=== PATIENT | female | born 1990 ===

== ENCOUNTER 2017-10-09 15:57 | Inpatient (IN) | payer OTHER ==
--- NOTE | 2017-10-09 17:26 | C.PDOC ---
History Of Present Illness 27 year old female, whose PMHx includes Anxiety, Depression and Migraines, presents to the ED requesting detox after using heroin and Xanax last night. Patient state she usually uses heroin intranasally or smokes it. Patient also reports smoking cigarettes, stating she smokes around 3-4 cigarettes daily. Patient reports intermittent chills, headache and diarrhea. She denies fever, vomiting, and suicidal/homicidal ideation at this time. Time Seen by Provider: 10/09/17 16:35 Chief Complaint (Nursing): Substance Abuse History Per: Patient History/Exam Limitations: no limitations Onset/Duration Of Symptoms: Hrs Current Symptoms Are (Timing): Still Present Suicide/Self Injury Attempted (Context): None Modifying Factor(s): Narcotics (heroin), Other (xanax ) Associated Symptoms: denies: Suicidal Thoughts, Suicidal Plan Involuntary Hold By: None Recent travel outside of the [place]: No Additional History Per: Patient Past Medical History Reviewed: Historical Data, Nursing Documentation, Vital Signs Vital Signs: Last Vital Signs Temp 98.1 F 10/09/17 16:24 Pulse 102 H 10/09/17 16:24 Resp 18 10/09/17 16:24 BP 146/102 H 10/09/17 16:24 Pulse Ox 98 10/09/17 17:34 - Medical History PMH: Anxiety, Depression, Gastritis, Migraine Denies: Diabetes, Hepatitis, HIV, HTN, Seizures, Sexually Transmitted Disease Surgical History: No Surg Hx - [facility] Procedures DETOXIFICATION SERVICES FOR SUBSTANCE ABUSE TREATMENT (12/18/16) GROUP DIRECTOR OF NURSES REGISTRY FOR SUBSTANCE ABUSE TREATMENT, PSYCHOEDUCATION (12/18/16) MEDICATION MANAGEMENT (12/18/16) Family History: States: Unknown Family Hx - Social History Hx Tobacco Use: Yes Hx Alcohol Use: Yes Hx Substance Use: Yes - Immunization History Hx Tetanus Toxoid Vaccination: No Hx Influenza Vaccination: No Hx Pneumococcal Vaccination: No Review Of Systems Constitutional: Positive for: Chills Gastrointestinal: Positive for: Diarrhea. Negative for: Vomiting Neurological: Positive for: Headache Psych: Negative for: Suicidal ideation, Other (detox from heroin and xanax ) Physical Exam - Physical Exam Appears: Non-toxic, No Acute Distress Skin: Normal Color, Warm, Dry Head: Atraumatic, Normacephalic Eye(s): bilateral: Normal Inspection Oral Mucosa: Moist Neck: Supple Chest: Symmetrical, No Deformity, No Tenderness Cardiovascular: Rhythm Regular, No Murmur Respiratory: Normal Breath Sounds, No Rales, No Rhonchi, No Wheezing Extremity: Normal ROM, Capillary Refill (less than 2 seconds ) Neurological/Psych: Oriented x3, Normal Speech, Normal Cognition Gait: Steady ED Course And Treatment - Laboratory Results Result Diagrams: 10/09/17 17:25 10/09/17 17:25 O2 Sat by Pulse Oximetry: 98 (on RA) Pulse Ox Interpretation: Normal Medical Decision Making Medical Decision Making: Impression: 27 year old female requesting detox Plan: * bloodwork * urinalysis * reassess and disposition Progress: Labs ordered and reviewed. In my clinical judgment patient is medically cleared and stable for admission for detox Disposition - Disposition Disposition: HOSPITALIZED Disposition Time: 18:00 Condition: STABLE - POA Present On Arrival: None - Clinical Impression Clinical Impression: Heroin abuse - PA / ELECT EQUIP MAINT ENG / Resident Statement MD/DO has reviewed & agrees with the documentation as recorded. - Scribe Statement The provider has reviewed the documentation as recorded by the Scribe (Isatu Gutierrez) All medical record entries made by the Scribe were at my direction and personally dictated by me. I have reviewed the chart and agree that the record accurately reflects my personal performance of the history, physical exam, medical decision making, and the department course for this patient. I have also personally directed, reviewed, and agree with the discharge instructions and disposition. Decision To Admit - Pt Status Changed To: Hospital Disposition Of: Inpatient - Admit Certification Admit to Inpatient:: After my assessment, the patient will require hospitalization for at least two midnights. This is because of the severity of symptoms shown, intensity of services needed, and/or the medical risk in this patient being treated as an outpatient. - InPatient: Physician Admission Certification: I certify that this patient requires 2 or more midnights of care for the following reason:: Patient accepted by dr zimmerman for detox of polysubstance and opiates - . Bed Request Type: Detox Admitting Physician: Margret Zimmerman Patient Diagnosis: Heroin abuse
[2017-10-09 17:30] LABS: BASO % 0.6 % (0.0-2.0); EOS # 0.1 K/uL (0.0-0.7); EOS % 1.6 % (0.0-4.0); HEMATOCRIT 37.5 % (34.0-47.0); LYMPH # 1.9 K/uL (1.0-4.3); LYMPH % 31.9 % (20.0-40.0); MEAN CELL VOLUME 80.2 fL (81.0-99.0); MEAN CORPUSCULAR HEMOGLOBIN 25.9 pg (27.0-31.0); MEAN CORPUSCULAR HGB CONC 32.2 g/dL (33.0-37.0); MEAN PLATELET VOLUME 6.9 fL (7.2-11.7); MONO # 0.3 K/uL (0.0-0.8); MONO % 5.2 % (0.0-10.0); RED CELL DISTRIBUTION WIDTH 14.4 % (11.5-14.5); WHITE BLOOD COUNT 6.1 K/uL (4.8-10.8)
[2017-10-09 17:40] LABS: RBC URINE < 1 /hpf (0-3); URINE BACTERIA OCC (<OCC); URINE BILIRUBIN NEGATIVE (NEGATIVE); URINE BLOOD NEGATIVE (NEGATIVE); URINE COLOR Yellow (YELLOW); URINE GLUCOSE (UA) NORMAL (Normal); URINE KETONE NEGATIVE (NEGATIVE); URINE LEUKOCYTE ESTERASE 1+ Leu/uL (Negative); URINE PROTEIN NEGATIVE (NEGATIVE); URINE UROBILINOGEN NORMAL mg/dL (0.2-1.0); WBC URINE 8 /hpf (0-5)
[2017-10-09 17:43] LABS: ALB/GLOB RATIO 1.7 (1.0-2.1); ALCOHOL SERUM < 10 mg/dl (0-10); ALKALINE PHOSPHATASE 71 U/L (38-126); ALT/SGPT 42 U/L (9-52); AST/SGOT 20 U/L (14-36); BILIRUBIN,TOTAL 0.7 mg/dL (0.2-1.3); BLOOD UREA NITROGEN 9 mg/dL (7-17); CALCIUM 8.8 mg/dl (8.6-10.4); CARBON DIOXIDE 26 mmol/L (22-30); CHLORIDE 101 mmol/L (98-107); GFR AFRICAN-AMERICAN > 60; GLUCOSE,RANDOM 86 mg/dL (65-105); POTASSIUM 3.9 mmol/L (3.6-5.2); SODIUM 137 mmol/L (132-148); TOTAL PROTEIN 7.9 g/dL (6.3-8.3)
--- NOTE | 2017-10-09 19:47 | PCM.BM ---
<Tyra Sams - Last Filed: 10/09/17 19:46> Treatment Plan Problems - Problems identified on initial assessmt Potential for opiate withdrawal Date Initiated: 10/09/17 Time Initiated: 19:46 Assessment reference: NA Status: Active Priority: 1 Treatment assets and liabiliti Patient Assests: cooperative, ADL independent, negotiates basic needs, cognitively intact Patient Liabilities: substance abuse - Milieu Protocol Maintain good personal hygiene: daily Encourage regular showers, daily Remind patient to perform daily oral care, daily Assist patient to perform ADL's Maintain personal safety: every shift Educate patient to report safety concerns to staff, every shift Monitor environment for contraband/sharps Medication safety: Monitor for expected outcome, potential side effects: every shift, Assess barriers to learning: every shift, Assess readiness for medication education: every shift <Margret Smith - Last Filed: 10/12/17 00:24> - Diagnosis (1) Opioid use disorder, severe, dependence Status: Acute Interventions: 10/12/17 00:25 * Assess 7x/week regarding severity of withdrawal * Educate regarding risks, benefits, side effects and alternatives of medications * Use Motivational Interviewing for abstinence * Use CBT for relapse prevention * Medication management for withdrawal symptoms * Encourage medication assisted treatment * <Rowena Wright - Last Filed: 10/15/17 08:43> Family Contact Family involvement: Family/SO is involved Family contact: Patient agrees to contact - Goals for Treatment Patient goals for treatment: Complete detox and apply for terminal operations supervisor rehab. Discharge/Continuing Care - Education Needs Education Needs: Patient Medication, Patient Diagnosis/Disease Process, Patient Coping Skills, Patient Anger Management skills, Patient Placement options, Patient Community resources - Discharge Discharge Criteria: No longer exhibiting s/s of withdrawal, Reduction of target symptoms Discharge to:: Substance Abuse Rehab - Treatment Team Participation Patient/Family/SO Statement: 10/15/17 08:43 "I need to go to rehab". Discussed with Family/SO: No Was Patient/Family/SO present at Treatment Team Meeting: Yes
[2017-10-09] MEDS ORDERED: Aluminum Hydroxide/Magnesium Hydroxide Susp (30 mL) PO PRN (22:12)
[2017-10-10] MEDS ORDERED: Buprenorphine Hydrochloride 2 mg SL ONE ×2 (09:45→10:52)
--- NOTE | 2017-10-10 13:29 | PCM.PSYCH ---
Initial Psychiatric Evaluation - Initial Psychiatric Evaluation Type of Admission: Voluntary Legal Status: Capacity Chief Complaint (in patient's own words): "Heroin" History of Present Illness and Precipitating Events: The patient is seen, chart reviewed and case discussed. This is a 27-year-old female, single with one son 10 m/o who is with the patient's boyfriend. The patient lives with her boyfriend and their child. 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 The patient is using a bundle of heroin intranasally for a year and half. She denies painkillers but she takes 4 mg Xanax for the last 5 years. She denies alcohol and all other drugs except for marijuana 3 times a week since age 17, and 3 or 4 cigarettes daily. No hx of seizures This is her second detox and she is has been to rehabilitation twice. Denies psych symptoms. Past psych history: Denies Family psych history: Denies Medical history: Migraines Current Medications: Active Medications Generic Name Dose Route Start Last Admin Trade Name Freq PRN Reason Stop Dose Admin Al Hydrox/Mg Hydrox/Simethicone 30 ml 10/09/17 22:12 Maalox 30 Ml PO TID PRN Indigestion / Heartburn Clonidine HCl 0.1 mg 10/09/17 22:12 10/10/17 13:00 Catapres PO 0.1 mg Q8 PRN Administration COWS Score More or Equal to 5 Escitalopram Oxalate 10 mg 10/10/17 10:00 10/10/17 10:01 Lexapro PO 10 mg DAILY LIDYA Administration Gabapentin 300 mg 10/10/17 10:00 10/10/17 10:01 Neurontin PO 300 mg BID LIDYA Administration Hydroxyzine HCl 25 mg 10/09/17 20:59 10/09/17 21:24 Atarax PO 25 mg Q6 PRN Administration Anxiety Loperamide HCl 2 mg 10/09/17 22:12 Imodium PO Q8 PRN Diarrhea Ondansetron HCl 4 mg 10/09/17 22:12 Zofran Tab PO Q8 PRN Nausea/Vomiting Quetiapine Fumarate 50 mg 10/10/17 22:00 Seroquel PO HS LIDYA Trazodone HCl 50 mg 10/09/17 20:58 10/09/17 21:24 Desyrel PO 50 mg HS PRN Administration Insomnia Past Psychiatric History - Past Psychiatric History Previous Treatment History: None Pertinent Medical Hx (Current Medical&Sleep Prob, Allergies): Allergies Allergy/AdvReac Type Severity Reaction Status Date / Time No Known Allergies Allergy Verified 10/09/17 16:28 Escitalopram [Lexapro] 20 mg PO DAILY 10/09/17 Gabapentin [Neurontin] 600 mg PO TID 10/09/17 QUEtiapine [Seroquel] 100 mg PO HS PRN 10/09/17 Review of Systems - Psychiatric Psychiatric: Abnormal Sleep Pattern, Anxiety. absent: Depression, Hallucinations, Homicidal Ideation, Suicidal Ideation Mental Status Examination - Personal Presentation Personal Presentation: Looks stated age - Affect Affect: Broad - Motor Activity Motor Activity: Calm - Reliability in Providing Information Reliability in Providing Information: Good - Speech Speech: Organized - Mood Mood: Anxious - Formal Thought Process Formal Thought Process: No Impairment - Cognitive Functions Orientation: Person, Place, Situation, Time Sensorium: Alert Attention/Concentration: Attentive Estimate of Intelligence: Average Judgement: Intact, as evidence by: Insight regarding need for hospitalization Memory: Recent intact, as evidence by: Ability to recall events of the day, Remote intact, as evidenced by: Abilit to recall sig. life events - Risk Risk: Withdrawal, Diminished functioning - Strength & Assets Inventory Strength & Assets Inventory: Cooperative - Limitations Limitations: Other DSM 5 DX - DSM 5 DSM 5 Diagnosis: Opioid withdrawal Opioid use disorder, severe Sedative, hypnotic or anxiolytic use disorder, severe Anxiety disorder, unspecified - Recommended/Plan of Treatment Treatment Recommendations and Plan of Treatment: Subutex detox Librium detox for benzos As needed medications Gabapentin for augmentation and anxiety Lexapro for dep/anxiety Attend groups and activities Supportive therapy and psychoeducation [place] for abstinence CBT for relapse prevention Encourage MAT Refer to rehab or IOP Attend self-help groups as well 34 min Projected ELOS: 5 days Prognosis: good with treatment - Smoking Cessation Smoking Cessation Initiated: Yes
[2017-10-10] MEDS: Vitamins A & D Oint UD Foilpak TOP PRN (18:15)
[2017-10-11] MEDS: Buprenorphine Hydrochloride 2 mg SL SCH (10:51)
[2017-10-11] MEDS: Vitamins A & D Oint UD Foilpak TOP PRN (11:38)
--- NOTE | 2017-10-11 14:02 | PCM.PYCHPN ---
Psychiatric Progress Note - Psychiatric Progress Note Patient seen today, length of contact: 17 min Patient Chief Complaint: "Heroin" Problems Identified/Issues Discussed: The pt is seen, chart reviewed, case discussed with staff. The pt is compliant with medications and reports no side-effects. Symptoms are improving but needs more time to stabilize. After care discussed, support and psychoeducation given. Wants to go to a rehab UTI - abx started Medication Change: Yes (detox changes daily) Medical Record Reviewed: Yes Mental Status Examination - Cognitive Function Orientation: Person, Place, Situation, Time Memory: Intact Attention: WNL Concentration: WNL Association: WNL Fund of Knowledge: WNL - Mood Mood: Anxious - Affect Affect: Broad - Speech Speech: Appropriate - Formal Thought Process Formal Thought Process: No Impairment - Suicidal Ideation Suicidal Ideation: No - Homicidal Ideation Homicidal Ideation: No Goal/Treatment Plan - Goal/Treatment Plan Need for Continued Stay: Discharge may exacerbated symptoms, Severe functional impairment Progress Toward Problem(s) and Goals/Treatment Plan: Subutex detox Librium detox for benzos As needed medications Gabapentin for augmentation and anxiety Lexapro for dep/anxiety Attend groups and activities Supportive therapy and psychoeducation [place] for abstinence CBT for relapse prevention Encourage MAT Refer to rehab or IOP Attend self-help groups as well
[2017-10-12] MEDS: Buprenorphine Hydrochloride 2 mg SL SCH (10:31)
--- NOTE | 2017-10-12 13:29 | PCM.PYCHPN ---
Psychiatric Progress Note - Psychiatric Progress Note Patient seen today, length of contact: 15 min Patient Chief Complaint: "I am doing well" Problems Identified/Issues Discussed: The pt is seen, chart reviewed, case discussed with staff. Support given, CBT and [place] used briefly No new symptoms reported, improving slowly and needs more time No SEs from medications, risks discussed. After care discussed - no change, she is pleased. UTI tx is going OK Medication Change: Yes (detox changes daily) Medical Record Reviewed: Yes Mental Status Examination - Cognitive Function Orientation: Person, Place, Situation, Time Memory: Intact Attention: WNL Concentration: WNL Association: WNL Fund of Knowledge: WNL - Mood Mood: Anxious - Affect Affect: Broad - Speech Speech: Appropriate - Formal Thought Process Formal Thought Process: No Impairment - Suicidal Ideation Suicidal Ideation: No - Homicidal Ideation Homicidal Ideation: No Goal/Treatment Plan - Goal/Treatment Plan Need for Continued Stay: Discharge may exacerbated symptoms, Severe functional impairment Progress Toward Problem(s) and Goals/Treatment Plan: Subutex detox Librium detox for benzos As needed medications Gabapentin for augmentation and anxiety Lexapro for dep/anxiety Attend groups and activities Supportive therapy and psychoeducation [place] for abstinence CBT for relapse prevention Encourage MAT Refer to rehab or IOP Attend self-help groups as well
[2017-10-12] MEDS: Saccharomyces Boulardi 250 mg Cap PO SCH (14:47)
[2017-10-12] MEDS: Amoxicillin-Clav 875-125 mg Tab PO SCH (19:43)
[2017-10-13] MEDS: Amoxicillin-Clav 875-125 mg Tab PO SCH ×2 (06:33→18:56)
[2017-10-13] MEDS: Buprenorphine Hydrochloride 2 mg SL SCH (10:24)
[2017-10-13] MEDS: Saccharomyces Boulardi 250 mg Cap PO SCH (12:50)
--- NOTE | 2017-10-13 17:09 | PCM.PYCHPN ---
Psychiatric Progress Note - Psychiatric Progress Note Patient seen today, length of contact: 17 min Patient Chief Complaint: "I'm feeling better" Problems Identified/Issues Discussed: The pt is seen, chart reviewed, case discussed with staff. Pt stated that she had anxiety attack yesterday after she has had an argument with the family member on the phone. Support given, CBT and [place] used briefly No new symptoms reported, improving slowly and needs more time No SEs from medications, risks discussed. After care discussed Medication Change: Yes (detox changes daily) Medical Record Reviewed: Yes Mental Status Examination - Cognitive Function Orientation: Person, Place, Situation, Time Memory: Intact Attention: WNL Concentration: WNL Association: WN Fund of Knowledge: WNL - Mood Mood: Anxious - Affect Affect: Broad - Speech Speech: Appropriate - Formal Thought Process Formal Thought Process: No Impairment Psychotic Thoughts and Behaviors: DENIED - Suicidal Ideation Suicidal Ideation: No - Homicidal Ideation Homicidal Ideation: No Goal/Treatment Plan - Goal/Treatment Plan Need for Continued Stay: Discharge may exacerbated symptoms, Severe functional impairment Progress Toward Problem(s) and Goals/Treatment Plan: Subutex detox Librium detox for benzos As needed medications Gabapentin for augmentation and anxiety Lexapro for dep/anxiety Attend groups and activities Supportive therapy and psychoeducation [place] for abstinence CBT for relapse prevention Encourage MAT Refer to rehab or IOP Estimated Date of D/C: 10/15/17 - Smoking Cessation Smoking Cessation Initiated: Yes
[2017-10-14] MEDS: Amoxicillin-Clav 875-125 mg Tab PO SCH ×2 (07:44→18:18)
[2017-10-14] MEDS: Buprenorphine Hydrochloride 2 mg SL SCH (09:38)
[2017-10-14] MEDS: Saccharomyces Boulardi 250 mg Cap PO SCH (11:51)
--- NOTE | 2017-10-14 16:21 | PCM.PYCHPN ---
Psychiatric Progress Note - Psychiatric Progress Note Patient seen today, length of contact: 15 min Patient Chief Complaint: "Medications are helping me" Problems Identified/Issues Discussed: The pt is seen, chart reviewed, case discussed with staff. Pt stated that she is feeling anxious as she is going to complete her detox. No new symptoms reported, improving slowly and needs more time. No SEs from medications, risks discussed. Support given, CBT and [place] used briefly After care discussed Medication Change: Yes (detox changes daily) Medical Record Reviewed: Yes Mental Status Examination - Cognitive Function Orientation: Person, Place, Situation, Time Memory: Intact Attention: WNL Concentration: WNL Association: [facility] Fund of Knowledge: [facility] Decription of patient's judgement and insights: good/good - Mood Mood: Anxious - Affect Affect: Broad - Speech Speech: Appropriate - Formal Thought Process Formal Thought Process: No Impairment Psychotic Thoughts and Behaviors: denied - Suicidal Ideation Suicidal Ideation: No - Homicidal Ideation Homicidal Ideation: No Goal/Treatment Plan - Goal/Treatment Plan Need for Continued Stay: Discharge may exacerbated symptoms, Severe functional impairment Progress Toward Problem(s) and Goals/Treatment Plan: Subutex detox Librium detox for benzos As needed medications Gabapentin for augmentation and anxiety Lexapro for dep/anxiety Attend groups and activities Supportive therapy and psychoeducation [place] for abstinence CBT for relapse prevention Encourage MAT Refer to rehab or IOP Estimated Date of D/C: 10/15/17 - Smoking Cessation Smoking Cessation Initiated: Yes
[2017-10-15] MEDS: Amoxicillin-Clav 875-125 mg Tab PO SCH (08:01)
--- NOTE | 2017-10-15 08:43 | PCM.PYCHDC ---
Mental Status Examination - Mental Status Examination Orientation: Person, Place, Situation, Time Memory: Intact Mood: Neutral Affect: Constricted Speech: Appropriate Attention: WNL Concentration: WNL Association: WNL Fund of Knowledge: WNL Formal Thought Process: No Impairment Suicidal Ideation: No Current Homicidal Ideation?: No Discharge Summary - Discharge Note Reason for Hospitalization: Opioid detox Psychiatric History (includes Medical, Family, Personal Hx): Anxiety, depression Consultations:: List each consultation separately and include: 1. Reason for request. 2. Findings. 3. Follow-up Summary of Hospital Course include:: 1. Description of specific treatment plan utilized for patients during their course of treatmen. 2. Summarize the time- course for resolution of acute symptoms and/or regressed behaviors. 3. Describe issues identified and worked on during hospitalization. 4. Describe medication utilized. 5. Describe medical problems identified and treated. 6. Reassessment of suicide risk Summary of Hospital Course: The patient is seen, chart reviewed and case discussed. This is a 27-year-old female, single with one son 10 m/o who is with the patient's boyfriend. The patient lives with her boyfriend and their child. 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 The patient is using a bundle of heroin intranasally for a year and half. She denies painkillers but she takes 4 mg Xanax for the last 5 years. She denies alcohol and all other drugs except for marijuana 3 times a week since age 17, and 3 or 4 cigarettes daily. No hx of seizures This is her second detox and she is has been to rehabilitation twice. Denies psych symptoms. Past psych history: Denies Family psych history: Denies Medical history: Migraines Hospital course: The pt was admitted and started on treatment with psychotherapy, support, psychoeducation and medications. [place] and CBT used. The pt attended groups and activities, as well as milieu therapy. All the risks and benefits of medications are discussed and the patient understood and agreed. The pt improved with the treatments provided. She stayed longer than usual due to her acceptance to [facility] for Sunday. She had high relapse risk if she were let go. Also, she got her friend put in money to her card so that she could get the pills from pharmacy on the way to [facility]. After care discussed with the patient and as stated she went to [facility] She was in good spirits and motivated. Her extermination inspector plans are iffy, though as she has a DYFS case. - Final Diagnosis (DSM 5) Condition upon Discharge: IMPROVED DSM 5: Opioid withdrawal Opioid use disorder, severe Sedative, hypnotic or anxiolytic use disorder, severe Anxiety disorder, unspecified Disposition: REHAB FACILITY/REHAB UNIT Follow-up Treatment Plan: Continue below medications after discharge. Of note, she did not get 300 and 400 mg gabapentin. 300 mg as well as seroquel 50 were entered on an earlier date and are cancelled when the doses changed. Follow after care plan as discussed. Use relapse prevention skills Return to ER or call 911 if suicidal, homicidal or symptoms relapse. Stay away from stress, alcohol and drugs. See primary doctor regularly and get labs. Prescriptions/Medication Reconciliation: Amoxicillin/Clavulanate [Augmentin 875 MG-125 MG Tab] 1 tab PO Q12H #4 tab Escitalopram [Lexapro] 10 mg PO DAILY #30 tab Gabapentin [Neurontin] 300 mg PO BID #60 cap Gabapentin [Neurontin] 400 mg PO TID #90 cap QUEtiapine [Seroquel] 100 mg PO HS #30 tab QUEtiapine [SEROquel] 50 mg PO HS #30 tab traZODone [Desyrel] 50 mg PO HS PRN #30 tab PRN Reason: Insomnia - Smoking Cessation Smoking Cessation Medication prescribed: No - Antipsychotic Medications Pt discharged on 2 or more routine antipsychotic medications: No
[2017-10-15 08:54] VITALS: BP 123/83; PULSE 68; RESP 19; TEMP 97.4; O2SAT 98
[2017-10-15] MEDS: Buprenorphine Hydrochloride 2 mg SL SCH (09:22)
== END 2017-10-15 11:00 | DRG 744 ==
LOC: C.ER 15:57 → C.7D 18:00
PROVIDERS: ADMIT Psychiatry & Neurology Psychiatry; ATTEND Psychiatry & Neurology Psychiatry
PROC: HZ2ZZZZ Detoxification Services for Substance Abuse Treatment (ICD-10-PCS; principal; 2017-10-09)
PROC: HZ59ZZZ Individual Psychotherapy for Substance Abuse Treatment, Supportive (ICD-10-PCS; 2017-10-09)
PROC: HZ46ZZZ Group Counseling for Substance Abuse Treatment, Psychoeducation (ICD-10-PCS; 2017-10-09)
DX: F11.23 Opioid dependence with withdrawal (principal); F13.90 Sedative, hypnotic, or anxiolytic use, unspecified, uncomplicated; F41.1 Generalized anxiety disorder; N39.0 Urinary tract infection, site not specified; F17.210 Nicotine dependence, cigarettes, uncomplicated